=== PATIENT | male | born 1990 ===

== ENCOUNTER 2020-12-16 16:19 | Emergency (ER) | payer OTHER ==
[~2020-12-16] VITALS: Ht 167.6 cm; Wt 70.0 kg
--- NOTE | 2020-12-16 16:42 | NUR ---
pt in bed with no signs or symptoms of acute distress noted respirations even and unlabored, md at bedside to assess. corrections officers at bedside, pt on pulse ox and bp.
--- NOTE | 2020-12-16 16:46 | NUR ---
pt continues in bed with no signs or symptoms of acute distress noted, respirations even and unlabored, xray in room.
--- NOTE | 2020-12-16 17:25 | NUR ---
md at bedside with inspector and sorter to speak with pt. pt aware and agreeable with plan of care. no signs or symptoms of acute distress noted respirations even and unlabored.
[2020-12-16] MEDS ORDERED: LIDOCAINE-MPF 1%, 5ML INFIL ONE (17:30)
[2020-12-16] MEDS ORDERED: LIDOCAINE-MPF 1%, 5ML ONE ×2 (17:31→17:38)
--- NOTE | 2020-12-16 17:43 | NUR ---
DR AT BEDSIDE TO DO NERVE BLOCK AND REDUCTION ON R THUMB. RN AT BEDSIDE TO ASSIST, PT TOLERATING PROCEDURE WELL.CORRECTIONS OFFICERS AT BEDSIDE.
[2020-12-16] MEDS ORDERED: PLEASE ENTER ALLERGIES MC SCH (18:00)
--- NOTE | 2020-12-16 18:02 | NUR ---
SPLINT PLACED. ERMD AT [facility] TO DISCUSS POC
[2020-12-16 18:53] VITALS: BP 98/58
== END 2020-12-16 18:58 | disposition home or self-care (01) ==
LOC: ED 16:49
DX: S63.114A Dislocation of metacarpophalangeal joint of right thumb, initial encounter (principal); W21.11XA Struck by baseball bat, initial encounter; Y93.89 Activity, other specified; Y92.488 Other paved roadways as the place of occurrence of the external cause; Y99.8 Other external cause status
CPT/HCPCS: 26700; 99284

== ENCOUNTER 2021-07-21 15:48 | Emergency (ER) | payer OTHER ==
[~2021-07-21] VITALS: Ht 167.6 cm; Wt 72.0 kg
--- NOTE | 2021-07-21 16:14 | NUR ---
PT. IS A & O X 4 WITH A [employer] OF 15. PT. REPORTS PLAYING BASKETBALL X 1 MONTH AGO. HE INJURED HIS RIGHT THUMB AND HAS HAD PAIN SINCE. PT.'S THUMB IS DEFORMED. CMS CHECKS ARE INTACT WITH PULSES +2 THROUGHOUT. PT. IS RESTING WITH THE HOB ELEVATED GREATER THAN 30 DEGREES. OFFICERS ARE AT THE BEDSIDE. NO ACUTE DISTRESS AT THIS TIME.
--- NOTE | 2021-07-21 17:59 | NUR ---
PT. AND THE OFFICERS WERE GIVEN DISCHARGE INSTRUCTIONS WITH UNDERSTANDING VERBALIZED ALONG WITH WILLINGNESS TO COMPLY. PT. WAS AMBULATORY OUR IN CUSTODY WITH THE OFFICERS.
[2021-07-21 18:00] VITALS: BP 115/80
== END 2021-07-21 18:03 | disposition home or self-care (01) ==
LOC: ED 16:00
DX: S63.114A Dislocation of metacarpophalangeal joint of right thumb, initial encounter (principal); Z87.891 Personal history of nicotine dependence; X58.XXXA Exposure to other specified factors, initial encounter; Y93.89 Activity, other specified; Y92.830 Public park as the place of occurrence of the external cause; Y99.8 Other external cause status
CPT/HCPCS: 99283